=== PATIENT | male | born 2000 | race Two or more races ===

== ENCOUNTER 2020-10-19 18:42 | Emergency (ER) | payer OTHER ==
[~2020-10-19] VITALS: Ht 190.5 cm; Wt 106.0 kg
[2020-10-19] MEDS ORDERED: ACETAMINOPHEN 500 MG TAB PO ONE (20:00)
[2020-10-19 21:23] LABS: RSV AMPLIFICATION NEGATIVE (NEGATIVE)
[2020-10-20 00:31] VITALS: BP 137/64
== END 2020-10-20 00:32 | disposition home or self-care (01) ==
LOC: M ED 18:42
DX: U07.1 COVID-19 (principal); Z88.0 Allergy status to penicillin; Z88.1 Allergy status to other antibiotic agents